=== PATIENT | male | born 1950 | race Caucasian/White ===

== ENCOUNTER 2018-10-06 09:15 | Inpatient (IN) ==
[2018-10-06] MEDS ORDERED: HYDROmorphone HCL 1 MG/ML DISP.SYRIN IV ONE (10:02)
[2018-10-06 10:16] LABS: Prothrombin Time (Patient) 10.5 Seconds (9.1-10.7)
[2018-10-06 10:17] LABS: Hematocrit 30.3 % (42.0-52.0); Hemoglobin 10.8 gm/dL (13.5-18.0); Mean Corpuscular Hemoglobin 35.6 pg (27-31); Mean Corpuscular Hgb Conc 35.6 g/dl (32-36); Mean Platelet Volume 9.6 fl (8-11.3); Neutrophil # 4.4 K/mm3 (1.3-6.0); Neutrophil % 77.9 % (42-75.0); Platelet Count 83 K/mm3 (150-450); Red Blood Count 3.03 M/mm3 (4.7-6.0); Red Cell Distribution Width 12.7 % (11.5-14.0); White Blood Count 5.7 K/mm3 (4.0-10.5)
[2018-10-06 10:19] LABS: INR 1.06 INR (0.92-1.08)
--- NOTE | 2018-10-06 10:35 | ERNOTE ---
Lower Extremity HPI - Narrative Date of Service: 10/06/18 - General Lower Extremities Pain: hip: left Time Seen by Provider: 10/06/18 09:30 Source: patient, family Exam Limitations: no limitations - Immun/Allergies/Home Medications Immunizations: IMMUNIZATION HX Immunizations Up to Date Yes History of Influenza Vaccine Yes Hx Pneumococcal Vaccination No Allergies/Adverse Reactions: Allergies Allergy/AdvReac Type Severity Reaction Status Date / Time No Known Allergies Allergy Verified 10/06/18 09:25 Home Medications: HOME MEDICATIONS zaiiwygv-rys-ulvje acid 300 mcg-lycopene 600 mcg-lutein 300 mcg tablet 1 tab PO DAILY 04/17/18 [Last Taken Unknown] allopurinol 300 mg tablet 300 mg PO DAILY #90 tab 05/11/18 [Last Taken Unknown] levothyroxine 50 mcg tablet 50 mcg PO DAILY #90 tab 05/11/18 [Last Taken Unknown] budesonide-formoterol HFA 80 mcg-4.5 mcg/actuation aerosol inhaler 2 inh IH BID #10.2 g 06/27/18 [Last Taken Unknown] alprazolam 0.5 mg tablet 0.5 mg PO TID PRN #30 tab 08/18/18 [Last Taken Unknown] zolpidem 10 mg tablet 10 mg PO HS #30 tab 08/18/18 [Last Taken Unknown] Albuterol Sulfate [Proair Hfa] 2 puff INHALATION QID PRN 10/06/18 [Last Taken Unknown] Tamsulosin HCl [Flomax] 0.4 mg PO DAILY 10/06/18 [Last Taken Unknown] - History of Present Illness Narrative: patient fell last pm, has been unable towalk since, pain in left hip Occurred: yesterday Location of Incident: home Method of Injury: Reports: fell Reason for Fall: Reports: lost balance, slipped Loss of Consciousness: Reports: no loss of consciousness Modifying Factors - (Improves): Reports: rest Modifying Factors - (Worsens): Reports: movement Associated Symptoms: Reports: unable to bear weight Other Injuries: Reports: none Prior Treament: Reports: recently seen, treated by physician, recently hospitalized Review of Systems - Review of Systems Constitutional: Present: See HPI EYE: Present: no symptoms reported ENT: Present: no symptoms reported Respiratory: Present: no symptoms reported Cardiology: Present: no symptoms reported Gastrointestinal/Abdominal: Present: no symptoms reported Genitourinary: Present: no symptoms reported Musculoskeletal: Present: See HPI, muscle pain, joint pain, joint swelling Skin: Present: no symptoms reported Neurological: Present: no symptoms reported Endocrine: Present: no symptoms reported Hematologic/Lymphatic: Present: no symptoms reported Psych: Present: no symptoms reported All Other Systems: All systems neg except as marked Medical History (Updated 10/06/18 @ 09:24 by Glendy Rudolph RN) Hypothyroidism (Chronic) Onset Date: Unknown Hypertension (Chronic) Onset Date: Unknown Gout (Chronic) Onset Date: Unknown Cyst of neck (Chronic) Onset Date: ~06/2005 right side of neck Had fine needle aspiration 09/2005- [place] '07- Tinguely- brachial cyst, benign salivary gland tissue, Warthin's tumor Bladder cancer COPD (chronic obstructive pulmonary disease) Diverticulitis of colon Onset Date: Unknown Surgical History: Surgical History (Updated 10/06/18 @ 09:24 by Glendy Rudolph RN) Hx of cystoscopy History of cervical spinal surgery Onset Date: ~07/27/11 Dr Rossi- C4, C5-C6 discectomies, cervical fusion, grafts History of colon resection Onset Date: ~1989 History of colonoscopy Onset Date: ~01/19/12 Tinguely- scattered left sided diverticulosis History of hernia repair Onset Date: Unknown Family History: Family History (Updated 04/17/18 @ 15:46 by Marely Parks CMA) Mother , 60 yrs COPD (chronic obstructive pulmonary disease) Father , 70 yrs COPD (chronic obstructive pulmonary disease) Sister Alive and well Social History: Preferred Language [place]er Smoking Status Current every day smoker Alcohol Use occasionally Drug Use none (Last Updated 06/20/18 @ 14:58 by Miriam Pickard MD) No Social History Section defined Physical Exam - Physical Exam General Appearance: Present: moderate distress, anxious Head Exam: Present: normal inspection, no evidence of injury Eye Exam: Normal inspection: bilateral, PERRL: bilateral, EOMI: bilateral Ears, Nose, Throat: Present: normal ENT inspection, normal pharynx Neck: Present: normal inspection, nontender Respiratory: Present: no respiratory distress, normal breath sounds, no accessory muscle use, chest nontender, lungs clear Cardiovascular/Chest: Present: regular rate, rhythm, no murmur, normal peripheral pulses Gastrointestinal/Abdominal: Present: normal bowel sounds, nontender, nondistended, soft Back Exam: Present: normal inspection, normal range of motion, no CVA tenderness, no vertebral tenderness Extremity Exam: Present: normal except - - pain left hip, neurovascular inteact Neurological Exam: Present: alert, oriented, normal mood/affect, no motor/sensory deficits Skin Exam: Present: normal color, warm/dry Lymphatic Exam: Present: no adenopathy Progress - Date and Time Seen: Date and Time: 10/06/18 10:33 condition unchanged - Results and Orders Patient's Lab Results:: I have reviewed the patient's lab results. - Vital Signs Patient's Vital Signs:: I have reviewed the patient's vital signs. Vital Signs: Vital Signs 10/06/18 09:15 10/06/18 10:07 10/06/18 10:12 Temperature 37.2 C Pulse Rate 107 H 102 H 92 Respiratory Rate 18 18 Blood Pressure 116/67 113/71 O2 Sat by Pulse Oximetry 94 95 - Progress/Reassessment Chief Complaint: Hip Pain/Injury Progress:: Unchanged - Transfer of Care Expected Disposition: Admit Plan - Plan Plan: case discussed with dr figueroa,and dr ruiz, patient accepted for admission Departure Clinical Impression: Hip fracture, left - Departure Disposition: Short Term Hospital Inpatient Condition: Stable Referrals: Miriam Pickard MD [Primary Care Provider] -
[2018-10-06] MEDS ORDERED: MORPHINE SULFATE 2 MG/ML DISP.SYRIN IV ONE (10:43)
--- NOTE | 2018-10-06 11:33 | CONS ---
- Reason for consultation (1) Hip fracture, left Date of Service: 10/06/18 HPI - General Date of Service: 10/06/18 Narrative: Patient presents today status post a fall with left hip pain. X-ray reveals a hip fracture. Patient notes he has significant pain when moving, pain is better at rest, he notes his pain comes and goes intermittently. He notes that his pain medication is controlling the pain well. Patient notes he has a signif icant history of bladder cancer, approximately 1-1/2 weeks ago he had a procedure performed on his bladder to remove the cancer. Patient notes otherwise he has no other acute current problems. He does note that he has a small rash inside his left thigh, he notes this is due to rubbing from his undergarments. Source: patient, family - History of Present Illness Allergies/Adverse Reactions: Allergies No Known Allergies Allergy (Verified 10/06/18 09:25) Home Medications: Home Medications Medication Instructions Recorded Last Taken fdqutyat-zww-dqrtc acid 300 1 tab PO DAILY 04/17/18 Unknown mcg-lycopene 600 mcg-lutein 300 mcg tablet allopurinol 300 mg tablet 300 mg PO DAILY #90 tab 05/11/18 Unknown levothyroxine 50 mcg tablet 50 mcg PO DAILY #90 tab 05/11/18 Unknown budesonide-formoterol HFA 80 2 inh IH BID #10.2 g 06/27/18 Unknown mcg-4.5 mcg/actuation aerosol inhaler alprazolam 0.5 mg tablet 0.5 mg PO TID PRN #30 tab 08/18/18 Unknown zolpidem 10 mg tablet 10 mg PO HS #30 tab 08/18/18 Unknown Albuterol Sulfate [Proair Hfa] 2 puff INHALATION QID PRN 10/06/18 Unknown Tamsulosin HCl [Flomax] 0.4 mg PO DAILY 10/06/18 Unknown Procedures Closure of skin and subcutaneous tissue of other sites (09/07/05) Colonoscopy (01/19/12) Excision of lesion of other soft tissue (07/15/06) Other local excision or destruction of lesion or tissue of skin and subcutaneous tissue (07/15/06) Physical Examination - Exam Vital Signs: Vital Signs - Last Taken Temp 37.2 C 10/06/18 09:15 Pulse 95 10/06/18 11:10 Resp 15 10/06/18 11:10 BP 128/77 10/06/18 11:10 Pulse Ox 96 10/06/18 11:10 O2 Oxygen Delivery Method Room Air Constitutional: Present: Alert, Cooperative, Mild distress Respiratory: Present: no respiratory distress Extremity: Present: other - LLE--> sensation intact light touch, distal pulses 2+, 5/5 plantar flexion dorsal flexion of the ankle, diffuse tenderness about his left hip, small area of erythema on his inner groin, no open obvious wounds Eye contact: Present: cooperative Thoughts: Present: normal thought pattern - Results and Findings: Lab/Microbiology results last 24 hrs: Abnormal/Pending Laboratory Last 24 HRS 10/06/18 10:00 RBC 3.03 L Hgb 10.8 L Hct 30.3 L MCH 35.6 H Plt Count 83 L Neutrophils % 77.9 H Lymphocytes % 9.3 L Monocytes % 12.2 H Lymphocytes # 0.53 L - Assessments/Findings (1) Hip fracture, left Problem: Acute Plan - Plan Plan: -67 y/o male was brought to the ER status post a fall with a left hip intertrochanteric femur fracture -Discussed with patient intervention including conservative or surgical intervention and the risk first benefits of both including but not limited to malunion versus nonunion healing, hardware failure, infection, bleeding, cardiac and stroke risk, continued pain, anesthetic risk. After assessing risks and answering all the patient's question patient wishes to proceed with surgical intervention. This will be performed on 10/06/2018 pending medical clearance. Discussed with patient continued care with admittance to the hospital, begin physical therapy for weightbearing as tolerated ambulation as well as determining postoperatively if patient needs require a care center stay versus being discharged home. Patient and family expressed understanding and note that we will discuss this postoperatively. Currently patient's pain will continue to be managed, will await admission and evaluation by our medical team to determine when surgical intervention can be performed. Notes that plan to continue with surgery on 10/06/2018 if no significant complications arise.
[2018-10-06] MEDS: NORMAL SALINE 1,000 ML IV PRN ×2 (12:06→19:03)
--- NOTE | 2018-10-06 12:53 | ANES ---
Anesthesia Pre Procedure Eval Vitals/Labs: Last Vital Signs Temp 36.8 C 10/06/18 12:12 Pulse 93 10/06/18 12:12 Resp 13 10/06/18 12:12 BP 111/59 10/06/18 12:12 Pulse Ox 96 10/06/18 12:12 HOME MEDICATIONS rgndfxfx-tmb-luesx acid 300 mcg-lycopene 600 mcg-lutein 300 mcg tablet 1 tab PO DAILY 04/17/18 [Last Taken 10/06/18] allopurinol 300 mg tablet 300 mg PO DAILY #90 tab 05/11/18 [Last Taken 10/06/18] levothyroxine 50 mcg tablet 50 mcg PO DAILY #90 tab 05/11/18 [Last Taken 10/06/18] budesonide-formoterol HFA 80 mcg-4.5 mcg/actuation aerosol inhaler 2 inh IH BID #10.2 g 06/27/18 [Last Taken 10/06/18] alprazolam 0.5 mg tablet 0.5 mg PO TID PRN #30 tab 08/18/18 [Last Taken 10/05/18] zolpidem 10 mg tablet 10 mg PO HS #30 tab 08/18/18 [Last Taken 10/05/18] Albuterol Sulfate [Proair Hfa] 2 puff INHALATION QID PRN 10/06/18 [Last Taken 10/06/18] Tamsulosin HCl [Flomax] 0.4 mg PO DAILY 10/06/18 [Last Taken 10/05/18] Allergies/Adverse Reactions: Allergies Allergy/AdvReac Type Severity Reaction Status Date / Time No Known Allergies Allergy Verified 10/06/18 09:25 - Planned Procedure Planned Procedure: hip fracture Medication List Reviewed:: Yes Allergies Verified: Yes Medical History (Updated 10/06/18 @ 11:33 by ANIRUDH Ordoñez) Hypothyroidism (Chronic) Onset Date: Unknown Hypertension (Chronic) Onset Date: Unknown Gout (Chronic) Onset Date: Unknown Cyst of neck (Chronic) Onset Date: ~06/2005 right side of neck Had fine needle aspiration 09/2005- - Tinguely- brachial cyst, benign salivary gland tissue, Warthin's tumor Bladder cancer COPD (chronic obstructive pulmonary disease) Diverticulitis of colon Onset Date: Unknown Surgical History (Updated 10/06/18 @ 11:33 by ANIRUDH Ordoñez) Hx of cystoscopy History of cervical spinal surgery Onset Date: ~07/27/11 Dr Rossi- C4, C5-C6 discectomies, cervical fusion, grafts History of colon resection Onset Date: ~1989 History of colonoscopy Onset Date: ~01/19/12 Tinguely- scattered left sided diverticulosis History of hernia repair Onset Date: Unknown Family History (Updated 04/17/18 @ 15:46 by Marely Parks [facility]) Mother , 60 yrs COPD (chronic obstructive pulmonary disease) Father , 70 yrs COPD (chronic obstructive pulmonary disease) Sister Alive and well - Family Anesthesia History Family History:: no untoward family reactions to anesthesia - Airway/Neck/Teeth Within Normal Limits:: Yes Teeth Condition: intact Neck Exam: full range of motion Mallampatti Score: 2 Thyromental (T-M) distance: > 6 cm Mandibulo Hyoid distance: > 3 cm - Respiratory Respiratory History: COPD Respiratory Physical: decreased breath sounds Smoking Status: Current every day smoker Discussed smoking cessation including day of surgery: Yes Sleep Apnea currently treated: No Sleep Apnea by current assessment: No - Cardiovascular Tolerate Activity: Fair Heart Sounds: S1 & S2, Regular - Anesthesia Assessment and Plan ASA Class: PS, III Anesthesia Type Plan: Spinal Planned difficult intubation/equipment available: No
[2018-10-06] MEDS ORDERED: MORPHINE SULFATE 10 MG/ML SYRG IV ONE ×2 (13:15→13:57)
[2018-10-06] MEDS ORDERED: ALBUTEROL SULFATE 2.5 MG/0.5 ML VIAL.NEB IH PRN (13:57)
[2018-10-06] MEDS ORDERED: ENOXAPARIN SODIUM 40 MG/0.4 ML SYRG SC SCH (14:00)
[2018-10-06 14:20] LABS: Albumin * 2.9 gm/dl (3.4-5.0); Anion Gap 11.2 mmol/L (6.8-13.8); BUN/Creatinine Ratio 12.1 (9.0-21.6); Bilirubin, Total 0.9 mg/dL (0.0-1.1); Ca. Corrected For Albumin 9.4 mg/dL (8.4-10.2); Calcium * 8.8 mg/dL (7.9-10.9); Carbon Dioxide 28.9 mmol/L (24-32.6); Potassium 4.1 mmol/L (3.4-4.6); Total Protein 6.7 gm/dL (6.2-8.2)
--- NOTE | 2018-10-06 14:29 | HP ---
Chief Complaint - Chief Complaint Date of Service: 10/06/18 Time of Service: 13:40 Chief Complaint: Fractured L. hip History of Present Illness: Kg Vazquez is a 67-year-old male who was at his home. He stood up from the couch and became lightheaded lost his balance and fell hard onto his left hip and could not bear weight on that leg since the fall. EMS was summoned. He is complaining of pain in the left hip and proximal femur. The left leg is shortened and externally rotated. He was brought to the ER where he was x-rayed and evaluated and found to have a comminuted displaced left intertrochanteric fracture. He is admitted for ORIF of the left hip. Dr. Orellana has seen him and they are planning surgery this afternoon. Medical History (Updated 10/06/18 @ 11:33 by ANIRUDH Ordoñez) Hypothyroidism (Chronic) Onset Date: Unknown Hypertension (Chronic) Onset Date: Unknown Gout (Chronic) Onset Date: Unknown Cyst of neck (Chronic) Onset Date: ~06/2005 right side of neck Had fine needle aspiration 09/2005- [place] - Tinguely- brachial cyst, benign salivary gland tissue, Warthin's tumor Bladder cancer COPD (chronic obstructive pulmonary disease) Diverticulitis of colon Onset Date: Unknown Surgical History: Surgical History (Updated 10/06/18 @ 11:33 by ANIRUDH Ordoñez) Hx of cystoscopy History of cervical spinal surgery Onset Date: ~07/27/11 Dr Rossi- C4, C5-C6 discectomies, cervical fusion, grafts History of colon resection Onset Date: ~1989 History of colonoscopy Onset Date: ~01/19/12 Tinguely- scattered left sided diverticulosis History of hernia repair Onset Date: Unknown Family History: Family History (Updated 04/17/18 @ 15:46 by Marely Parks CMA) Mother , 60 yrs COPD (chronic obstructive pulmonary disease) Father , 70 yrs COPD (chronic obstructive pulmonary disease) Sister Alive and well Social History: Patient Lives/Resources With Spouse Utilized Occupation Retired Preferred Language Italian Do you have any adventist or No cultural preference? 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 He is anticipating he will receive chemotherapy and radiation therapy in the future. Musculoskeletal: Present: Joint Pain - Left hip due to fracture Neurological: Present: No Symptoms Reported Skin: Present: No Symptoms Reported Endocrine: Present: No Symptoms Reported Immunizations: IMMUNIZATION HX Immunizations Up to Date Yes History of Influenza Vaccine Yes Hx Pneumococcal Vaccination No Allergies/Adverse Reactions: Allergies Allergy/AdvReac Type Severity Reaction Status Date / Time No Known Allergies Allergy Verified 10/06/18 09:25 Home Medications: HOME MEDICATIONS dnjjwdek-rfa-ppocs acid 300 mcg-lycopene 600 mcg-lutein 300 mcg tablet 1 tab PO DAILY 04/17/18 [Last Taken 10/06/18] allopurinol 300 mg tablet 300 mg PO DAILY #90 tab 05/11/18 [Last Taken 10/06/18] levothyroxine 50 mcg tablet 50 mcg PO DAILY #90 tab 05/11/18 [Last Taken 10/06/18] budesonide-formoterol HFA 80 mcg-4.5 mcg/actuation aerosol inhaler 2 inh IH BID #10.2 g 06/27/18 [Last Taken 10/06/18] alprazolam 0.5 mg tablet 0.5 mg PO TID PRN #30 tab 08/18/18 [Last Taken 10/05/18] zolpidem 10 mg tablet 10 mg PO HS #30 tab 08/18/18 [Last Taken 10/05/18] Albuterol Sulfate [Proair Hfa] 2 puff INHALATION QID PRN 10/06/18 [Last Taken 10/06/18] Tamsulosin HCl [Flomax] 0.4 mg PO DAILY 10/06/18 [Last Taken 10/05/18] Exam - Exam Vital Signs: Vital Signs - Last Taken Temp 36.8 C 10/06/18 12:12 Pulse 93 10/06/18 12:12 Resp 13 07/12/19 12:12 BP 111/59 10/06/18 12:12 Pulse Ox 96 10/06/18 12:12 Constitutional: Present: Alert, Oriented x3, Cooperative, Well developed, Well nourished, Mild distress, Elderly ENT Exam: Present: normal ENT inspection, hearing grossly normal, pharynx normal, TMs normal. Absent: hard of hearing Eye Exam: bilateral eye: normal inspection, PERRL, EOMI Back Exam: Present: normal inspection, no CVA tenderness, no vertebral tenderness Breasts: Present: Nontender Respiratory: Present: chest non-tender, lungs clear, normal breath sounds, no respiratory distress, no accessory muscle use, decreased breath sounds, expiration (prolonged) Cardiovascular/Chest: Present: normal peripheral pulses, regular rate, rhythm, no chest tenderness, no edema, no gallop, no JVD, no murmur, no rub Peripheral Pulses: carotid (R): 2+, carotid (L): 2+, femoral (R): 2+, femoral (L): 2+, dorsalis-pedis (R): 2+, dorsalis-pedis (L): 2+, radial (R): 2+, radial (L): 2+ Abdomen: Present: Normal bowel sounds, soft, nontender, nondistended, no rebound tenderness, no hepatospenomegaly, no masses /Rectal: Present: External genitalia normal Extremity: Present: normal range of motion, non-tender, normal inspection, no pedal edema, no calf tenderness, normal capillary refill, pelvis stable, leg pain - Left hip Skin Exam: Present: normal color, warm/dry, no cyanosis, cool/dry, pallor Lymphatic: Present: no adenopathy Neurologic: Present: tobacco stripper II-XII nml as tested, no motor/sensory deficits, alert, normal mood/affect, oriented x 3 Appearance: Present: appropriate appearance, appropriate insight, neat, no memory impairment Eye contact: Present: cooperative, good eye contact, normal speech Thoughts: Present: normal thought pattern, no apparent hallucination Diagnostic Studies: Abnormal Lab Results 10/06/18 Range/Units 10:00 RBC 3.03 L (4.7-6.0) M/mm3 Hgb 10.8 L (13.5-18.0) gm/dL Hct 30.3 L (42.0-52.0) % MCH 35.6 H (27-31) pg Plt Count 83 L (150-450) K/mm3 Neutrophils % 77.9 H (42-75.0) % Lymphocytes % 9.3 L (20-51) % Monocytes % 12.2 H (0.0-9) % Lymphocytes # 0.53 L (1.5-3.5) k/mm3 Laboratory Results WBC 5.7 K/mm3 (4.0-10.5) 10/06/18 10:00 RBC 3.03 M/mm3 (4.7-6.0) L 10/06/18 10:00 Hgb 10.8 gm/dL (13.5-18.0) L 10/06/18 10:00 Hct 30.3 % (42.0-52.0) L 10/06/18 10:00 MCV 100.0 fl (78-100) 10/06/18 10:00 MCH 35.6 pg (27-31) H 10/06/18 10:00 MCHC 35.6 g/dl (32-36) 10/06/18 10:00 RDW 12.7 % (11.5-14.0) 10/06/18 10:00 Plt Count 83 K/mm3 (150-450) L 10/06/18 10:00 MPV 9.6 fl (8-11.3) 10/06/18 10:00 Immature Gran % (Auto) 0.40 % (0.001-0.429) 10/06/18 10:00 Immature Gran # (Auto) 0.02 K/mm3 (0.000-0.0310) 10/06/18 10:00 77.9 % (42-75.0) H 10/06/18 10:00 9.3 % (20-51) L 10/06/18 10:00 12.2 % (0.0-9) H 10/06/18 10:00 0.0 % (0.0-3.0) 10/06/18 10:00 0.2 % (0.0-1.0) 10/06/18 10:00 Nucleated RBC % 0.0 k/mm3 (0-1) 10/06/18 10:00 4.4 K/mm3 (1.3-6.0) 10/06/18 10:00 0.53 k/mm3 (1.5-3.5) L 10/06/18 10:00 0.7 k/mm3 (0.0-1.0) 10/06/18 10:00 0.0 k/mm3 (0.0-0.7) 10/06/18 10:00 Absolute Basophils 0.0 k/mm3 (0.0-0.1) 10/06/18 10:00 PT 10.5 Seconds (9.1-10.7) 10/06/18 10:00 INR (Anticoag Therapy) 1.06 INR (0.92-1.08) 10/06/18 10:00 PTT ([place]) 27.2 Seconds (24-32) 10/06/18 10:00 Assessment/Plan - Narrative Narrative: I have examined Kg Vazquez. He is a thin white male who appears chronically ill. He has known bladder cancer and is been undergoing chemo and is just had a bladder resection done 2 weeks ago. Examination of the legs show the left leg is shortened and externally rotated. Distal pulses at the popliteal and pedal pulses are normal. Color is normal. Temperature is symmetrical. The physical exam is otherwise unremarkable. I have reviewed his EKG which is normal. I have reviewed his chest x-ray which shows centrilobular emphysema but no acute cardiopulmonary circumstance is present. I have reviewed his hip x-ray which shows a comminuted and displaced left intertrochanteric fracture with decreased mineralization of the bone. I reviewed his CBC which shows hemoglobin of 10.4 g and platelets of 67,000. The white count is normal at 5400. Kg is medically approved for the planned ORIF of the left hip scheduled for this afternoon. - Assessment/Plan (1) Hip fracture, left Problem: Acute Qualifiers: Encounter type: initial encounter Fracture type: closed Qualified Code(s): S72.002A - Fracture of unspecified part of neck of left femur, initial encounter for closed fracture (2) COPD (chronic obstructive pulmonary disease) Problem: Chronic Qualifiers: Emphysema type: centrilobular (3) Thrombocytopenia Problem: Acute (4) Anemia Problem: Acute Qualifiers: Anemia type: unspecified type Qualified Code(s): D64.9 - Anemia, unspec ified (5) Senile osteoporosis Problem: Chronic (6) Bladder cancer Problem: Chronic Qualifiers: Bladder location: anterior wall Qualified Code(s): C67.3 - Malignant neoplasm of anterior wall of bladder
[2018-10-06] MEDS ORDERED: ceFAZolin SODIUM 1 GM VIAL IV ONE (14:55)
[2018-10-06] MEDS ORDERED: RINGER'S SOLUTION,LACTATED 1,000 ML IV PRN (15:15)
[2018-10-06] MEDS ORDERED: ZOLPIDEM TARTRATE 5 MG TABLET PO PRN (15:48)
[2018-10-06] MEDS ORDERED: ONDANSETRON HCL/PF 2 MG/ML VIAL IV PRN (15:48)
[2018-10-06] MEDS ORDERED: diphenhydrAMINE HCL 50 MG/ML VIAL IV PRN (15:48)
[2018-10-06] MEDS ORDERED: ACETAMINOPHEN 500 MG TABLET PO PRN (15:48)
[2018-10-06] MEDS ORDERED: MAGNESIUM HYDROXIDE 30 ML UDC PO PRN (15:48)
[2018-10-06] MEDS ORDERED: MAG HYDROX/ALUMINUM HYD/SIMETH 30 ML UDC PO PRN (15:48)
[2018-10-06] MEDS ORDERED: HYDROcodone/ACETAMINOPHEN 1 EACH TABLET PO PRN (15:48)
--- NOTE | 2018-10-06 15:48 | OR ---
Operative Report - Dictated Report Narrative: Date: 10/06/2018 Surgeon: Roland Murphy M.D. Lead Quality Technician: Joel Becerra PA-C (provided an essential set of skilled educated handset assisted with transfer, positioning, prepping, draping, placement of instruments, insertion of implants, irrigation, closure wounds, and placement of dressings all which could not be performed by the available surgical crew) Preoperative diagnosis: Closed displaced left Intertrochanteric femur fracture Postoperative diagnosis: Closed displaced left Intertrochanteric femur fracture Operations and procedures: 1. Closed reduction, cephalo-medullary fixation left intertrochanteric femur fracture 2. Intraoperative interpretation of radiographs Anesthesia: Spinal Specimens: None Estimated blood loss: 50 Milliliters Retained implants: [employer] Trigen InterTAN 130 degree size 10 mm by 18 centimeter nail with 110 millimeter lag screw and 105 millimeter compression screw, with distal locking screw Complications: None Indications for procedure: Mr. Vazquez is a 67-year-old gentleman who injured the left leg after ground -level fall at home. They were admitted to the hospital after being evaluated in the emergency department. Once the medical provider felt that they were stable for surgical treatment, the risks and benefits alternatives were discussed. The risks of , blood clots, bleeding, infection, nerve/tendon/blood vessel injury, malunion, nonunion, failure of implants, painful implants, arthrosis, and need for additional procedures were discussed. The extremity was marked and consent was obtained on the floor. Procedure: After marking the operative extremity on the floor, the patient was taken to the operating room. A timeout was performed. IV antibiotics consisting of Ancef were administered. A spinal anesthetic was induced by anesthesia, and the patient was then placed onto a fracture table with a well-padded perineal post. The nonoperative leg was placed in a well-padded traction boot in slight extension without any traction with an SCD on the leg. The operative leg was placed in a well-padded traction boot. Longitudinal traction, internal rotation, and flexion were utilized in order to reduce the fracture. Preliminary images were attained utilizing C-arm in both the AP and lateral views. This confirmed that we had obtained adequate visualization of the fracture as well as reduction. Next the hip was then prepped and draped in a standard sterile fashion. Next the guidewire was placed percutaneously proximal to the greater trochanter to lauren a starting point at the tip of the greater trochanter centered on the lateral view. This was passed down to the level below the lesser trochanter. A scalpel was utilized in order to dissect down to the greater trochanter in order to place the soft tissue protector down to bone. The entry drill was then placed down the proximal femur to the level of the lesser trochanter. The proper size nail was then selected and impacted into place. The outrigger was utilized in order to confirm the appropriate depth of the nail. Using the alignment device on the outrigger, an incision was made over the lateral femur. Sharp dissection was carried through the iliotibial band down to the proximal femur. The guidewire was placed into the femoral head in a center- center position on AP and lateral views. The tip-apex distance of less than 25 mm combined was obtained. Once we felt that we had placed a guidewire in the appropriate position, it was measured. Next the compression screw site was drilled through the lateral femoral cortex. This was then drilled down to the appropriate depth, again confirming that we are within the confines the bone. The derotational bar was then placed and the lag screw was drilled. The lag screw was then secured in place seating fully ensuring that we were within the confines of the bone. The compression screw was then inserted allowing for compression while releasing the traction on the leg. Using C-arm this was visualized to allow for compression across the fracture site. Once is felt that we had adequately stabilized the intertrochanteric fracture, the distal interlocking screw was placed in a dynamic position. It was confirmed to be the appropriate length and within the nail on both AP and lateral views. The nail was secured allowing for controlled compression and the outrigger was removed. The wounds were then thoroughly irrigated. Final images were obtained . The hip was placed through range of motion and showed no crepitance. The deep fascia was closed with 0 Vicryl, the subcutaneous tissue with 3-0 Vicryl, and the skin was closed with wilian. Sterile dressings of Xeroform, 4 x 4, and tape were applied. All sponge, sharp, and instrument counts were correct prior to closing the wounds. The patient was then awoken and transferred to the postanesthesia care unit in stable condition.
--- NOTE | 2018-10-06 15:59 | ANES ---
Post Anesthesia Discharge - Transfer of Care Transfer of Care handoff given to nurse: Yes - Discharge to [facility] Discharge to A[facility]-no complications/pt stable: Yes
--- NOTE | 2018-10-06 16:25 | ANES ---
Post Anesthesia Assessment - Vital Signs Vitals: Last Vital Signs Temp 36.5 C 10/06/18 16:10 Pulse 86 10/06/18 16:10 Resp 12 10/06/18 16:10 BP 103/57 10/06/18 16:10 Pulse Ox 100 10/06/18 16:10 Airway Patency: Normal - Mental Status Level Of Consciousness: Awake, Alert, Appropriate - Pain Level Pain Score: 0 - N/V Assessment Nausea/Vomiting Presence: None Dehydration:: No
[2018-10-06] MEDS: ceFAZolin SODIUM 1 GM in DEXTROSE 5 % IN WATER 100 ML IV SCH ×4 (16:51→23:17)
[2018-10-06] MEDS: TAMSULOSIN HCL 0.4 MG CAP.SR.24H PO SCH (18:34)
--- NOTE | 2018-10-06 18:36 | PN ---
Mattie Note - Interim Date: 10/06/18 Time: 18:00 Narrative: 10/06/18 18:33 I came by to see Mr. Vazquez this evening. He is sitting up and eating supper. He is fully alert and conversant. He still cannot feel his legs or move his toes at this point. He does not seem to be in a lot of discomfort. He did request that he get his tamsulosin and Symbicort this evening and both are ordered. Objective: His vital signs have been stable and he has been afebrile postoperatively. Is been no significant bleeding. Heart has regular rate and rhythm. Lungs are clear in all keller. Abdomen is soft nontender bowel sounds are normal. Extremitieslower have good pedal pulses, capillary refill, and the temperature is symmetrical. Neurological: He had spinal anesthesia and so his anesthesia still ongoing below the waist. Impression: Status postop 3 hours Plan: Expect anesthesia to wear off during the night. He has pain medication ordered by Dr. Murphy. I will check morning lab.
[2018-10-06] MEDS: SENNOSIDES/DOCUSATE SODIUM 1 TAB TABLET PO SCH ×2 (20:31→20:35)
[2018-10-06] MEDS: FLUTICASONE PROPION/SALMETEROL 14 PUFF DISK.W.DEV IH SCH (20:31)
[2018-10-06] MEDS: ZOLPIDEM TARTRATE 10 MG TABLET PO SCH (20:35)
[2018-10-06] MEDS ORDERED: HYDROcodone/ACETAMINOPHEN 1 EACH TABLET ONE (23:14)
[2018-10-06] MEDS: HYDROcodone/ACETAMINOPHEN 1 EACH TABLET PO PRN (23:16)
[2018-10-07] MEDS: HYDROcodone/ACETAMINOPHEN 1 EACH TABLET PO PRN ×5 (03:24→22:08)
[2018-10-07] MEDS: NORMAL SALINE 1,000 ML IV PRN (03:52)
[2018-10-07] MEDS: ceFAZolin SODIUM 1 GM in DEXTROSE 5 % IN WATER 100 ML IV SCH ×2 (05:20)
[2018-10-07] MEDS ORDERED: MORPHINE SULFATE 10 MG/ML SYRG IV ONE ×2 (06:14→11:08)
[2018-10-07 06:22] LABS: Albumin * 2.2 gm/dl (3.4-5.0); Anion Gap 8.3 mmol/L (6.8-13.8); BUN/Creatinine Ratio 9.5 (9.0-21.6); Bilirubin, Total 0.5 mg/dL (0.0-1.1); Ca. Corrected For Albumin 9.2 mg/dL (8.4-10.2); Calcium * 8.1 mg/dL (7.9-10.9); Carbon Dioxide 28.2 mmol/L (24-32.6); Potassium 3.5 mmol/L (3.4-4.6); Total Protein 5.5 gm/dL (6.2-8.2)
[2018-10-07 06:23] LABS: Mean Cell Volume 101.7 fl (78-100); Mean Corpuscular Hemoglobin 34.9 pg (27-31); Mean Corpuscular Hgb Conc 34.3 g/dl (32-36); Mean Platelet Volume 10.2 fl (8-11.3); Neutrophil # 3.5 K/mm3 (1.3-6.0); Neutrophil % 76.4 % (42-75.0); Platelet Count 81 K/mm3 (150-450); Red Blood Count 2.29 M/mm3 (4.7-6.0); Red Cell Distribution Width 12.9 % (11.5-14.0); White Blood Count 4.6 K/mm3 (4.0-10.5)
[2018-10-07 06:32] LABS: Hematocrit 23.3 % (42.0-52.0)
[2018-10-07] MEDS: LEVOTHYROXINE SODIUM 50 MCG TABLET PO SCH (06:49)
[2018-10-07] MEDS: MULTIVIT-MIN/FA/LYCOPEN/LUTEIN 1 TAB TABLET PO SCH (08:06)
[2018-10-07] MEDS: FLUTICASONE PROPION/SALMETEROL 14 PUFF DISK.W.DEV IH SCH ×2 (08:06→20:34)
[2018-10-07] MEDS: ALLOPURINOL 300 MG TABLET PO SCH (08:06)
--- NOTE | 2018-10-07 11:13 | PN ---
Subjective - Date and Time Seen Date: 10/07/18 Time: 09:15 Subjective Narrative: Kg is sitting up in a chair when I come in the room. He is chest transferred and it has exhausted him. His heart rate went up into the 1 teens. I received a call this morning about 5:00 stating that his pain was increased and I changed his hydrocodone to every 4 hours. I had another call about 7 that he was in a lot of discomfort and I ordered 5 mg of morphine to be given IV wh ich made him much more comfortable. I advised him to speak with orthopedics today about his pain management to get more effective. Otherwise he is done well postoperatively. He is weak and short of breath with exertion and having some tachycardia. He dropped nearly 3 g of hemoglobin from preop to postop. This morning hemoglobin is 8 g. Remainder of his lab is normal. Physical therapy is working with him to help him stand and transfer and they will try to do some steps later. I spoke with him about his osteoporosis and that he should speak with Dr. Pickard about Prolia injections. Since he has had an osteoporotic fracture he would qualify immediately. Objective - Review of Systems Generalized/Overall Review: Reports: Weakness, Fatigue, Weight loss EENTM: Reports: No Symptoms Reported Respiratory: Reports: Shortness of Breath Cardiac: Reports: Other - Tachycardia Abdominal: Reports: No Symptoms Reported Genitourinary Symptoms: Reports: No Symptoms Reported, Other - He has a Hernandez catheter in place. He has bladder cancer. Musculoskeletal Complaints: Reports: Joint Pain - Due to hip fracture Neurological: Reports: No Symptoms Reported, Weakness Skin: Reports: No Symptoms Reported Endocrine: Reports: No Symptoms Reported - Vitals Vitals: Last Vital Signs Temp 36.5 C 10/07/18 10:22 Pulse 87 10/07/18 10:22 Resp 16 10/07/18 10:22 BP 99/53 10/07/18 10:22 Pulse Ox 96 10/07/18 10:22 - Abnormal Lab Findings Abnormal Lab Findings: Abnormal Lab Results 10/06/18 10/07/18 10/07/18 Range/Units 10:00 06:00 06:00 RBC 2.29 L (4.7-6.0) M/mm3 Hgb 8.0 L (13.5-18.0) gm/dL Hct 23.3 L* D (42.0-52.0) % MCV 101.7 H (78-100) fl MCH 34.9 H (27-31) pg Plt Count 81 L (150-450) K/mm3 Neutrophils % 76.4 H (42-75.0) % Lymphocytes % 10.4 L (20-51) % Monocytes % 11.5 H (0.0-9) % Lymphocytes # 0.48 L (1.5-3.5) k/mm3 Random Glucose 126 H 115 H (70-110) mg/dL AST 115 H 67 H (0-48) U/L ALT 91 H (19-67) U/L Total Protein 5.5 L (6.2-8.2) gm/dL Albumin 2.9 L 2.2 L (3.4-5.0) gm/dl - Exam Constitutional: Present: Alert, Oriented x3, Cooperative, Well developed, Well nourished, No distress ENT Exam: Present: normal ENT inspection, hearing grossly normal, pharynx normal, TMs normal Neck: Present: non-tender, full range of motion, supple, normal inspection, trachea midline Breasts: Present: Exam deferred Respiratory: Present: chest non-tender, lungs clear, decreased breath sounds, expiration (prolonged) Cardiovascular/Chest: Present: normal peripheral pulses, regular rate, rhythm, no chest tenderness, no edema, no gallop, no JVD, no murmur, no rub Abdomen: Present: Normal bowel sounds, soft, nontender, nondistended, no rebound tenderness, no hepatospenomegaly, no masses /Rectal: Present: Exam deferred Extremity: Present: normal range of motion, non-tender, normal inspection, no pedal edema, no calf tenderness, normal capillary refill Skin Exam: Present: pallor - Due to anemia of hemoglobin 8 g Lymphatic: Present: no adenopathy Neurologic: Present: level glass vial filler II-XII nml as tested, normal cerebellar test, no motor/sensory deficits, alert, normal mood/affect, oriented x 3 Appearance: Present: appropriate appearance, appropriate insight, neat, no memory impairment Eye contact: Present: cooperative, good eye contact, normal speech Thoughts: Present: normal thought pattern, no apparent hallucination Cauti Physician Documentation - Urinary Catheter Management Urethral (Hernandez) Urethral Indwelling: No Date of Insertion: 10/06/18 Time of Insertion: 11:38 Date of Removal: 10/07/18 Time of Removal: 09:46 Assessment/Plan Plan Narrative: 1. Repeat CBC and BMP tomorrow morning 2. Progress physical therapy as tolerated 3. His pain management has been an adequate. Orthopedics will need to address that when they round today. I have given him morphine 5 mg twice this morning and increased his hydrocodone to every 4 hours during the night. 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 - Problems/Diagnosis (1) Hip fracture, left Problem: Acute Qualifiers: Encounter type: initial encounter Fracture type: closed Qualified Code(s): S72.002A - Fracture of unspecified part of neck of left femur, initial encounter for closed fracture (2) COPD (chronic obstructive pulmonary disease) Problem: Chronic Qualifiers: Emphysema type: centrilobular (3) Thrombocytopenia Problem: Acute (4) Anemia Problem: Acute Qualifiers: Anemia type: unspecified type Qualified Code(s): D64.9 - Anemia, unspecified (5) Senile osteoporosis Problem: Chronic (6) Bladder cancer Problem: Chronic Qualifiers: Bladder location: anterior wall Qualified Code(s): C67.3 - Malignant neoplasm of anterior wall of bladder
--- NOTE | 2018-10-07 12:06 | PN ---
Subjective - Date and Time Seen Date: 10/07/18 Time: 12:02 Subjective Narrative: Kg reports about 3 in the morning was having pain he did take [place]. He thought it did help a bit but then at 5 AM he had a spike of pain again. Right now he reports his pain is adequately controlled. He did get up with physical therapy and up to the chair a couple times and reports that has gone better than he thought. The first time he got up he did get a little lightheaded. No nausea. No other complaints. Objective Objective Narrative: Patient is currently up in a chair alert oriented and does not appear to be in distress. Examination of his left hip reveals ice pack on his hip, dressings clean dry and intact. His left calf is supple. He reports sensation intact to light touch. He is able to plantarflex and dorsiflex his left ankle. - Vitals Vitals: Last Vital Signs Temp 36.5 C 10/07/18 10:22 Pulse 87 10/07/18 10:22 Resp 16 10/07/18 10:22 BP 99/53 10/07/18 10:22 Pulse Ox 96 10/07/18 10:22 - Abnormal Lab Findings Abnormal Lab Findings: Abnormal Lab Results 10/06/18 10/07/18 10/07/18 Range/Units 10:00 06:00 06:00 RBC 2.29 L (4.7-6.0) M/mm3 Hgb 8.0 L (13.5-18.0) gm/dL Hct 23.3 L* D (42.0-52.0) % MCV 101.7 H (78-100) fl MCH 34.9 H (27-31) pg Plt Count 81 L (150-450) K/mm3 Neutrophils % 76.4 H (42-75.0) % Lymphocytes % 10.4 L (20-51) % Monocytes % 11.5 H (0.0-9) % Lymphocytes # 0.48 L (1.5-3.5) k/mm3 Random Glucose 126 H 115 H (70-110) mg/dL AST 115 H 67 H (0-48) U/L ALT 91 H (19-67) U/L Total Protein 5.5 L (6.2-8.2) gm/dL Albumin 2.9 L 2.2 L (3.4-5.0) gm/dl Cauti Physician Documentation - Urinary Catheter Management Urethral (Hernandez) Urethral Indwelling: No Date of Insertion: 10/06/18 Time of Insertion: 11:38 Date of Removal: 10/07/18 Time of Removal: 09:46 Assessment/Plan - Problems/Diagnosis (1) Hip fracture, left Problem: Acute Qualifiers: Encounter type: initial encounter Fracture type: closed Qualified Code(s): S72.002A - Fracture of unspecified part of neck of left femur, initial encounter for closed fracture Narrative: Kg is doing fairly well. I will add in MS Contin 15 mg every 12 hours for better long-term pain control. Continue physical therapy. Continue anticoagulation. Medical comanagement for comorbidities. (2) Acute blood loss anemia Problem: Acute Narrative: Per medical observation, Dr. Whittaker has repeat labs ordered for tomorrow morning.
[2018-10-07] MEDS: MORPHINE SULFATE 15 MG TABLET.SA PO SCH (12:25)
[2018-10-07] MEDS: RIVAROXABAN 20 MG TABLET PO SCH (14:01)
[2018-10-07] MEDS: TAMSULOSIN HCL 0.4 MG CAP.SR.24H PO SCH (18:04)
[2018-10-07] MEDS: SENNOSIDES/DOCUSATE SODIUM 1 TAB TABLET PO SCH (20:34)
[2018-10-07] MEDS: ZOLPIDEM TARTRATE 10 MG TABLET PO SCH (22:12)
[2018-10-08] MEDS: MORPHINE SULFATE 15 MG TABLET.SA PO SCH ×3 (00:06→23:19)
[2018-10-08] MEDS: HYDROcodone/ACETAMINOPHEN 1 EACH TABLET PO PRN ×5 (02:43→20:17)
[2018-10-08 06:01] LABS: Mean Cell Volume 102.5 fl (78-100); Mean Corpuscular Hemoglobin 35.1 pg (27-31); Mean Corpuscular Hgb Conc 34.3 g/dl (32-36); Mean Platelet Volume 9.6 fl (8-11.3); Platelet Count 93 K/mm3 (150-450); Red Blood Count 2.02 M/mm3 (4.7-6.0); Red Cell Distribution Width 13.3 % (11.5-14.0); White Blood Count 6.9 K/mm3 (4.0-10.5)
[2018-10-08 06:32] LABS: Albumin * 2.2 gm/dl (3.4-5.0); Anion Gap 10.2 mmol/L (6.8-13.8); Bilirubin, Total 0.9 mg/dL (0.0-1.1); Ca. Corrected For Albumin 9.3 mg/dL (8.4-10.2); Calcium * 8.2 mg/dL (7.9-10.9); Carbon Dioxide 27.1 mmol/L (24-32.6); Potassium 4.3 mmol/L (3.4-4.6); Total Protein 5.4 gm/dL (6.2-8.2)
[2018-10-08 06:41] LABS: Hematocrit 20.7 % (42.0-52.0); Hemoglobin 7.1 gm/dL (13.5-18.0)
[2018-10-08 06:42] LABS: Total Cells Counted 100
[2018-10-08 06:50] LABS: Atypical (Reactive) Lymph 1 % (0-2); Band 2 % (0-2.0); Lymphocyte 13 % (20-51); Monocyte 10 % (0-9); Neutrophil 74 % (42-75); Neutrophil # 5.1 K/mm3 (1.3-6.0)
[2018-10-08 06:51] LABS: Anisocytosis 2+; Hypochromia 2+; Platelet Estimate Decreased (NORMAL)
[2018-10-08] MEDS: LEVOTHYROXINE SODIUM 50 MCG TABLET PO SCH (07:27)
[2018-10-08] MEDS: MULTIVIT-MIN/FA/LYCOPEN/LUTEIN 1 TAB TABLET PO SCH (08:30)
[2018-10-08] MEDS: ALLOPURINOL 300 MG TABLET PO SCH (08:30)
[2018-10-08] MEDS: FLUTICASONE PROPION/SALMETEROL 14 PUFF DISK.W.DEV IH SCH ×2 (08:30→20:18)
[2018-10-08] MEDS: RIVAROXABAN 20 MG TABLET PO SCH (08:31)
--- NOTE | 2018-10-08 14:20 | PN ---
Subjective - Date and Time Seen Date: 10/08/18 Time: 13:15 Objective - Review of Systems Generalized/Overall Review: Reports: Weakness EENTM: Reports: No Symptoms Reported Respiratory: Reports: Shortness of Breath - But much improved from yesterday. Yesterday he became very dyspneic just transferring from chair to bed in bed to chair. Today he walked slowly with a walker and contact-guard assist about 60 feet and did not appear to be air hungry. Cardiac: Reports: No Symptoms Reported Abdominal: Reports: No Symptoms Reported Genitourinary Symptoms: Reports: No Symptoms Reported, Other - Has known bladder cancer Musculoskeletal Complaints: Reports: Joint Pain - Left hip pain from recent hip fracture and ORIF. Neurological: Reports: No Symptoms Reported Skin: Reports: No Symptoms Reported Endocrine: Reports: No Symptoms Reported - Vitals Vitals: Last Vital Signs Temp 37.1 C 10/08/18 13:39 Pulse 94 10/08/18 13:39 Resp 16 10/08/18 13:39 BP 141/75 10/08/18 13:39 Pulse Ox 97 10/08/18 13:39 - Abnormal Lab Findings Abnormal Lab Findings: Abnormal Lab Results 10/08/18 10/08/18 10/08/18 Range/Units 05:45 05:59 05:59 RBC 2.02 L (4.7-6.0) M/mm3 Hgb 7.1 L* (13.5-18.0) gm/dL Hct 20.7 L* (42.0-52.0) % MCV 102.5 H (78-100) fl MCH 35.1 H (27-31) pg Plt Count 93 L (150-450) K/mm3 Lymphocytes % (Manual) 13 L (20-51) % Monocytes % (Manual) 10 H (0-9) % Lymphocytes # (Manual) 0.9 L (1.5-3.5) k/mm3 Platelet Estimate Decreased L (NORMAL) Sodium 130 L (132-142) mmol/L AST 61 H (0-48) U/L Total Protein 5.4 L (6.2-8.2) gm/dL Albumin 2.2 L (3.4-5.0) gm/dl Crossmatch See Detail - Exam Constitutional: Present: Alert, Oriented x3, Cooperative, Well developed, Elderly, Thin and frail ENT Exam: Present: normal ENT inspection, hearing grossly normal, pharynx normal Neck: Present: non-tender, full range of motion, supple Breasts: Present: Nontender Respiratory: Present: chest non-tender, lungs clear, decreased breath sounds, expiration (prolonged) Cardiovascular/Chest: Present: normal peripheral pulses, regular rate, rhythm, no chest tenderness, no edema, no gallop, no JVD, no murmur, no rub Abdomen: Present: Normal bowel sounds, soft, nontender, nondistended, no rebound tenderness, no hepatospenomegaly, no masses /Rectal: Present: Exam deferred Extremity: Present: normal range of motion, non-tender, normal inspection, no pedal edema, no calf tenderness, normal capillary refill Skin Exam: Present: normal color, warm/dry Lymphatic: Present: no adenopathy Neurologic: Present: 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, no motor/sensory deficits, abnormal gait - Gait assisted with front wheeled walker, motor weakness Appearance: Present: appropriate appearance, appropriate insight, neat, no memory impairment Eye contact: Present: cooperative, good eye contact, normal speech Thoughts: Present: normal thought pattern, no apparent hallucination Cauti Physician Documentation - Urinary Catheter Management Urethral (Hernandez) Urethral Indwelling: No Date of Insertion: 10/06/18 Time of Insertion: 11:38 Date of Removal: 10/07/18 Time of Removal: 09:46 Assessment/Plan Plan Narrative: [place] is doing quite a bit better than yesterday. He has been up and ambulated as described above. He has much less dyspnea. His hemoglobin did drop to 7.1 g and so he has had 2 units of packed red blood cells typed and crossed and the first unit has been completed and he is ready to start the second unit now. It appears the blood is helping his breathing and energy level some. He ate a good breakfast this morning but did not eat much lunch today. He is tired from physical therapy and would like to take a nap. No other complications are apparent. - Problems/Diagnosis (1) Hip fracture, left Problem: Acute Qualifiers: Encounter type: initial encounter Fracture type: closed Qualified Code(s): S72.002A - Fracture of unspecified part of neck of left femur, initial encounter for closed fracture (2) COPD (chronic obstructive pulmonary disease) Problem: Chronic Qualifiers: Emphysema type: centrilobular (3) Thrombocytopenia Problem: Acute (4) Anemia Problem: Acute Qualifiers: Anemia type: unspecified type Qualified Code(s): D64.9 - Anemia, unspecified (5) Senile osteoporosis Problem: Chronic (6) Bladder cancer Problem: Chronic Qualifiers: Bladder location: anterior wall Qualified Code(s): C67.3 - Malignant neoplasm of anterior wall of bladder
[2018-10-08 17:03] LABS: Hematocrit 31.1 % (42.0-52.0); Hemoglobin 10.7 gm/dL (13.5-18.0)
[2018-10-08] MEDS: TAMSULOSIN HCL 0.4 MG CAP.SR.24H PO SCH (18:11)
[2018-10-08] MEDS: SENNOSIDES/DOCUSATE SODIUM 1 TAB TABLET PO SCH (20:19)
[2018-10-08] MEDS: ZOLPIDEM TARTRATE 10 MG TABLET PO SCH (22:08)
[2018-10-09] MEDS: HYDROcodone/ACETAMINOPHEN 1 EACH TABLET PO PRN ×3 (02:58→15:40)
[2018-10-09] MEDS: ALPRAZolam 0.5 MG TABLET PO PRN ×2 (03:49→12:06)
[2018-10-09 06:23] LABS: Hematocrit 29.2 % (42.0-52.0); Hemoglobin 9.9 gm/dL (13.5-18.0); Mean Corpuscular Hemoglobin 33.2 pg (27-31); Mean Corpuscular Hgb Conc 33.9 g/dl (32-36); Neutrophil # 4.8 K/mm3 (1.3-6.0); Neutrophil % 71.1 % (42-75.0); Platelet Count 168 K/mm3 (150-450); Red Blood Count 2.98 M/mm3 (4.7-6.0); Red Cell Distribution Width 14.6 % (11.5-14.0); White Blood Count 6.8 K/mm3 (4.0-10.5)
[2018-10-09 06:26] LABS: Albumin * 2.3 gm/dl (3.4-5.0); Anion Gap 11.9 mmol/L (6.8-13.8); BUN/Creatinine Ratio 9.8 (9.0-21.6); Bilirubin, Total 1.4 mg/dL (0.0-1.1); Ca. Corrected For Albumin 9.6 mg/dL (8.4-10.2); Calcium * 8.6 mg/dL (7.9-10.9); Carbon Dioxide 26.5 mmol/L (24-32.6); Potassium 4.4 mmol/L (3.4-4.6); Total Protein 5.9 gm/dL (6.2-8.2)
[2018-10-09] MEDS: LEVOTHYROXINE SODIUM 50 MCG TABLET PO SCH (06:30)
[2018-10-09] MEDS: FLUTICASONE PROPION/SALMETEROL 14 PUFF DISK.W.DEV IH SCH (10:00)
[2018-10-09] MEDS: RIVAROXABAN 20 MG TABLET PO SCH (10:01)
[2018-10-09] MEDS: ALLOPURINOL 300 MG TABLET PO SCH (10:01)
[2018-10-09] MEDS: MULTIVIT-MIN/FA/LYCOPEN/LUTEIN 1 TAB TABLET PO SCH (10:01)
[2018-10-09] MEDS: MORPHINE SULFATE 15 MG TABLET.SA PO SCH (12:06)
--- NOTE | 2018-10-09 12:39 | DS ---
(1) Hip fracture, left Problem: Acute Qualifiers: Encounter type: initial encounter Fracture type: closed Qualified Code(s): S72.002A - Fracture of unspecified part of neck of left femur, initial encounter for closed fracture (2) COPD (chronic obstructive pulmonary disease) Problem: Chronic Qualifiers: Emphysema type: centrilobular (3) Thrombocytopenia Problem: Resolved (4) Anemia Problem: Acute Qualifiers: Anemia type: other cause Other causes of anemia: acute posthemorrhagic Qualified Code(s): D62 - Acute posthemorrhagic anemia (5) Senile osteoporosis Problem: Chronic (6) Bladder cancer Problem: Chronic Qualifiers: Bladder location: anterior wall Qualified Code(s): C67.3 - Malignant neoplasm of anterior wall of bladder Description of Stay: Kg is a 67-year-old male who presents with a fractured left hip. He was admitted through ER to my service for medical management and to orthopedics for fracture management. He underwent ORIF of the left hip and he has been ambulatory at the last 2 days. Today they are working with him on stair safety. Orthopedics, physical therapy, nursing, and I have all suggested he go to rehab for a couple of weeks but he is insistent on going home. From the description there are significant architectural barriers that will pose some degree of risk for him. He has agreed to allow home health and physical therapy to come in to work with him. He is aware that if it does not work out at home he can still go to group home. He is advised that his recovery would be much more efficient if he were to go to rehab. Medically he has been very stable since being here. He has been little anxious today and his heart rate is been up some but probably from nicotine withdrawal. He has eaten fairly well here although he says he usually does not and as thin as he is I believe that to be true. He said he has not had an appetite for 2 or 3 years. Perhaps an appetite stimulant should be considered. I will talk with Dr. Pickard about that. He has progressed his ambulatory distance to nearly 100 feet today. On day 1 he became extremely short of breath just transferring from bed to chair on day 2 he walks 60 feet and this morning close to 100. He is optimistic that he will be able to do his rehab at home and come to outpatient physical therapy here at [facility]. [id number]-tu-[id number] for walker: He will need a wheeled walker due to his recent left hip fracture and repair. He will benefit greatly from the walker as it Jennifer's improve his safety and accelerate his rehab. [id number] encounter for home health: Kg Vazquez is confined and homebound to the home due to a recent fractured left hip which has been repaired with an ORIF procedure. He was already weakened because of bladder carcinoma. He has had a lot of weight loss and is osteoporotic. The need for group home is medication and education and management, wound care, monitoring of healing, diagnosis management education, and surgery follow-up. The need for physical therapy include limb strengthening, gait training, progression of mobility, improved range of motion, and surgery follow-up. The need for occupational therapy includes safety awareness, improved dexterity, and improved independence of his ADLs. He does not need speech therapy. The need for home health care skilled services is directly related to the time spent [id number] with the person. Procedures Performed: see notes below - Repair of fractured left hip List Procedures: ORIF left hip Results and Findings: Lab Pending Results 10/06/18 10:00: WBC 5.7, RBC 3.03 L, Hgb 10.8 L, Hct 30.3 L, MCV 100.0, MCH 35.6 H, MCHC 35.6, RDW 12.7, Plt Count 83 L, MPV 9.6, Immature Gran % (Auto) 0.40, Immature Gran # (Auto) 0.02, Neutrophils % 77.9 H, Lymphocytes % 9.3 L, Monocytes % 12.2 H, Eosinophils % 0.0, Basophils % 0.2, Nucleated RBC % 0.0, Neutrophils # 4.4, Lymphocytes # 0.53 L, Monocytes # 0.7, Eosinophils # 0.0, Absolute Basophils 0.0 10/06/18 10:00: PT 10.5, INR (Anticoag Therapy) 1.06 10/06/18 10:00: PTT (Marly) 27.2 10/06/18 10:00: Sodium 136, Plasma Sodium 136, Potassium 4.1, Chloride 100, Carbon Dioxide 28.9, Anion Gap 11.2, BUN 12, Creatinine 0.99, Est GFR (Non-Af Amer) 80, BUN/Creatinine Ratio 12.1, Random Glucose 126 H, Calcium 8.8, Calcium Adj for Albumin 9.4, Total Bilirubin 0.9, AST 115 H, ALT 91 H, Alkaline Phosphatase 140, Total Protein 6.7, Albumin 2.9 L 10/07/18 06:00: WBC 4.6, RBC 2.29 L, Hgb 8.0 L, Hct 23.3 L* D, MCV 101.7 H, MCH 34.9 H, MCHC 34.3, RDW 12.9, Plt Count 81 L, MPV 10.2, Immature Gran % (Auto) 0.40, Immature Gran # (Auto) 0.02, Neutrophils % 76.4 H, Lymphocytes % 10.4 L, Monocytes % 11.5 H, Eosinophils % 1.1, Basophils % 0.2, Nucleated RBC % 0.0, Neutrophils # 3.5, Lymphocytes # 0.48 L, Monocytes # 0.5, Eosinophils # 0.1, Absolute Basophils 0.0 10/07/18 06:00: Sodium 133, Plasma Sodium 133, Potassium 3.5, Chloride 100, Carbon Dioxide 28.2, Anion Gap 8.3, BUN 7, Creatinine 0.74, Est GFR (Non-Af Amer) 112 D, BUN/Creatinine Ratio 9.5, Random Glucose 115 H, Calcium 8.1, Calcium Adj for Albumin 9.2, Total Bilirubin 0.5, AST 67 H, ALT 65, Alkaline Phosphatase 102, Total Protein 5.5 L, Albumin 2.2 L 10/08/18 05:45: Blood Type A Positive, Antibody Screen Negative, Crossmatch See Detail 10/08/18 05:59: WBC 6.9 D, RBC 2.02 L, Hgb 7.1 L*, Hct 20.7 L*, MCV 102.5 H, MCH 35.1 H, MCHC 34.3, RDW 13.3, Plt Count 93 L, MPV 9.6, Neutrophils % (Manual) 74, Band Neuts % (Manual) 2, Lymphocytes % (Manual) 13 L, Monocytes % (Manual) 10 H, Neutrophils # (Manual) 5.1, Lymphocytes # (Manual) 0.9 L, Monocytes # (Manual) 0.7, Atypic/Reactive Lymphs 1, Platelet Estimate Decreased L, Hypochromasia 2+, Anisocytosis 2+ 10/08/18 05:59: Sodium 130 L, Plasma Sodium 130, Potassium 4.3 D, Chloride 97, Carbon Dioxide 27.1, Anion Gap 10.2, BUN 10, Creatinine 0.77, Est GFR (Non-Af Amer) 107, BUN/Creatinine Ratio 13.0, Random Glucose 100, Calcium 8.2, Calcium Adj for Albumin 9.3, Total Bilirubin 0.9, AST 61 H, ALT 54, Alkaline Phosphatase 116, Total Protein 5.4 L, Albumin 2.2 L 10/08/18 16:57: Hgb 10.7 L, Hct 31.1 L 10/09/18 05:55: WBC 6.8, RBC 2.98 L, Hgb 9.9 L, Hct 29.2 L, MCV 98.0, MCH 33.2 H, MCHC 33.9, RDW 14.6 H, Plt Count 168, MPV 10.0, Immature Gran % (Auto) 0.70 H, Immature Gran # (Auto) 0.05 H, Neutrophils % 71.1, Lymphocytes % 8.7 L, Monocytes % 16.6 H, Eosinophils % 2.8, Basophils % 0.1, Nucleated RBC % 0.0, Neutrophils # 4.8, Lymphocytes # 0.59 L, Monocytes # 1.1 H, Eosinophils # 0.2, A bsolute Basophils 0.0 10/09/18 05:55: Sodium 131 L, Plasma Sodium 131, Potassium 4.4, Chloride 97, Carbon Dioxide 26.5, Anion Gap 11.9, BUN 9, Creatinine 0.92, Est GFR (Non-Af Amer) 87, BUN/Creatinine Ratio 9.8, Random Glucose 78, Calcium 8.6, Calcium Adj for Albumin 9.6, Total Bilirubin 1.4 H, AST 66 H, ALT 57, Alkaline Phosphatase 169, Total Protein 5.9 L, Albumin 2.3 L Discharge Location: Home Disposition: Home Health Service Home Health Agency: [facility] Home Health Condition: Stable Face to Face Encounter completed per CMS Guidelines: Yes - For PT and OT and for a walker Discharge Activity: Activity as tolerated, Weight bearing - With a walker Discharge Diet: General/regular food Referrals: Kamari Whittaker DO [Staff Physician] - Roland Murphy MD [Staff Physician] - Consultation Done:: Dr. Murphy Problem Oriented Discharge Instructions to Patient/Family: Total Hip Replacement, [id number], Total Hip Replacement, Care After, [id number]-[id number] Additional Patient Instructions (free text): 1. See Dr. Pickard in her office sometime in the next 2 weeks. 2. [facility] new. Please call report and fax orders upon discharge. -Follow up with Dr. Pickard 10/23 at 10:00am. - Follow up with Orthopedic Dr. Murphy 10/24 at 10:45am. Prescriptions (Any new or edited meds): HYDROcodone/ACETAMINOPHEN [Hydrocodon-Acetaminophen 5-325] 2 each PO QID PRN #120 tablet PRN Reason: Pain Metoprolol Tartrate [Lopressor] 25 mg PO BID #60 tab Morphine Sulfate [Ms Contin] 15 mg PO Q12H #30 tablet.sa Complete Home Medications List: Complete Home Medication List: xmqolpty-oes-qguov acid 300 mcg-lycopene 600 mcg-lutein 300 mcg tablet 1 tab PO DAILY 04/17/18 allopurinol 300 mg tablet 300 mg PO DAILY #90 tab 05/11/18 levothyroxine 50 mcg tablet 50 mcg PO DAILY #90 tab 05/11/18 budesonide-formoterol HFA 80 mcg-4.5 mcg/actuation aerosol inhaler 2 inh IH BID #10.2 g 06/27/18 alprazolam 0.5 mg tablet 0.5 mg PO TID PRN #30 tab 08/18/18 zolpidem 10 mg tablet 10 mg PO HS #30 tab 08/18/18 Albuterol Sulfate [Proair Hfa] 2 puff INHALATION QID PRN 10/06/18 Tamsulosin HCl [Flomax] 0.4 mg PO DAILY 10/06/18 Acetaminophen [Tylenol] 1,000 mg PO Q6H PRN tab 10/09/18 HYDROcodone/ACETAMINOPHEN [Hydrocodon-Acetaminophen 5-325] 2 each PO QID PRN #120 tablet 10/09/18 HYDROcodone/ACETAMINOPHEN [[place] 5-325] 2 ea PO Q4H PRN tab 10/09/18 Mag Hydrox/Aluminum Hyd/Simeth [Maalox Plus Suspension] 30 ml PO Q6H PRN udc 10/09/18 Magnesium Hydroxide [Milk Of Magnesia] 30 ml PO DAILY PRN udc 10/09/18 Metoprolol Tartrate [Lopressor] 25 mg PO BID #60 tab 10/09/18 Morphine Sulfate [Ms Contin] 15 mg PO Q12H #30 tablet.sa 10/09/18 Rivaroxaban [Xarelto] 20 mg PO DAILY tab 10/09/18 Sennosides/Docusate Sodium [Senokot-S] 2 tab PO HS tab 10/09/18
[2018-10-09] MEDS ORDERED: METOPROLOL TARTRATE 25 MG TABLET PO SCH (12:45)
[2018-10-09 15:43] VITALS: BP 93/57
--- NOTE | 2018-10-09 15:47 | PN ---
Subjective - Date and Time Seen Date: 10/09/18 Time: 15:46 Subjective Narrative: Subjective: Reports mild achy pain and fatigue. Was able to walks some in the room with therapy. Pain is well-controlled. Voiding without any complications. Tolerating by mouth intake. Denies any nausea or vomiting. Denies calf pain. Slept well. Physical exam: Alert and oriented to person, place and time Left lower Extremity: Palpable dorsalis pedis pulse. Sensation grossly intact to light touch. Dressings clean and dry. Able to flex and extend ankle and toes. No excessive drainage. Calf and thigh are soft and nontender. Assessment: Postop day 3 status post left hip intramedullary nailing. Plan: Continue with physical and occupational therapy weightbearing as tolerated. Continue with anticoagulation - Will need 6 weeks of DVT prophylaxis. Pain control with goal to rely on oral medications. Continue bowel regimen. Will need 6 weeks with walker or assitive device to protect joint while ambulating during the recovery process. Discharge planning. Return to clinic in 2-3 weeks. Keep the wounds clean and dry. Cover with dry gauze and tape. Range of motion as tolerated. Okay to discharge from orthopedic standpoint. Objective - Vitals Vitals: Last Vital Signs Temp 36.9 C 10/09/18 15:42 Pulse 94 10/09/18 15:42 Resp 14 10/09/18 15:42 BP 93/57 10/09/18 15:42 Pulse Ox 99 10/09/18 15:42 - Abnormal Lab Findings Abnormal Lab Findings: Abnormal Lab Results 10/08/18 10/08/18 10/09/18 Range/Units 05:45 16:57 05:55 RBC 2.98 L (4.7-6.0) M/mm3 Hgb 10.7 L 9.9 L (13.5-18.0) gm/dL Hct 31.1 L 29.2 L (42.0-52.0) % MCH 33.2 H (27-31) pg RDW 14.6 H (11.5-14.0) % Immature Gran % (Auto) 0.70 H (0.001-0.429) % Immature Gran # (Auto) 0.05 H (0.000-0.0310) K/mm3 Lymphocytes % 8.7 L (20-51) % Monocytes % 16.6 H (0.0-9) % Lymphocytes # 0.59 L (1.5-3.5) k/mm3 Monocytes # 1.1 H (0.0-1.0) k/mm3 Sodium (132-142) mmol/L Total Bilirubin (0.0-1.1) mg/dL AST (0-48) U/L Total Protein (6.2-8.2) gm/dL Albumin (3.4-5.0) gm/dl Crossmatch See Detail 10/09/18 Range/Units 05:55 RBC (4.7-6.0) M/mm3 Hgb (13.5-18.0) gm/dL Hct (42.0-52.0) % MCH (27-31) pg RDW (11.5-14.0) % Immature Gran % (Auto) (0.001-0.429) % Immature Gran # (Auto) (0.000-0.0310) K/mm3 Lymphocytes % (20-51) % Monocytes % (0.0-9) % Lymphocytes # (1.5-3.5) k/mm3 Monocytes # (0.0-1.0) k/mm3 Sodium 131 L (132-142) mmol/L Total Bilirubin 1.4 H (0.0-1.1) mg/dL AST 66 H (0-48) U/L Total Protein 5.9 L (6.2-8.2) gm/dL Albumin 2.3 L (3.4-5.0) gm/dl Crossmatch Cauti Physician Documentation - Urinary Catheter Management Urethral (Hernandez) Urethral Indwelling: No Date of Insertion: 10/06/18 Time of Insertion: 11:38 Date of Removal: 10/07/18 Time of Removal: 09:46
== END 2018-10-09 16:40 | disposition home health service (06) | DRG 481 ==
LOC: ER 09:15 → MS 11:13
PROVIDERS: ADMIT Family Medicine; ATTEND Family Medicine
DX: F17.210 Nicotine dependence, cigarettes, uncomplicated; E03.9 Hypothyroidism, unspecified; I10 Essential (primary) hypertension; D62 Acute posthemorrhagic anemia; M81.0 Age-related osteoporosis without current pathological fracture; W01.0XXA Fall on same level from slipping, tripping and stumbling without subsequent striking against object, initial encounter; D69.6 Thrombocytopenia, unspecified; S72.142A Displaced intertrochanteric fracture of left femur, initial encounter for closed fracture; C67.3 Malignant neoplasm of anterior wall of bladder; J44.9 Chronic obstructive pulmonary disease, unspecified
CPT/HCPCS: 36415; 71010; 71045; 73502; 80053; 85007; 85014; 85018; 85025; 85610; 85730; 86850; 93005; 96374; 97116; 97161; 97530; 99283; P9016